=== PATIENT | female | born 1990 | race Hispanic/Latino ===

== ENCOUNTER 2016-10-16 12:12 | Emergency (ER) | payer OTHER ==
[~2016-10-16] VITALS: Ht 157.5 cm; Wt 67.6 kg
--- NOTE | 2016-10-16 13:18 | ED INFLUENZA/URI COMPLAINT ---
History of Present Illness General Chief Complaint: Upper Respiratory Sx/Fever Stated Complaint: URI Source: patient Exam Limitations: no limitations Vital Signs & Intake/Output Vital Signs & Intake/Output Vital Signs Date Time Temp Pulse Resp B/P Pulse O2 O2 Flow FiO2 Ox Delivery Rate 10/16 1523 99.2 87 18 114/72 98 Room Air 10/16 1349 101.2 10/16 1348 101.2 10/16 1315 Room Air 10/16 1312 102.5 ED Intake and Output 10/17 0000 10/16 1200 Intake Total 1000 Output Total Balance 1000 Intake, IV 1000 Patient 149 lb Weight Allergies Coded Allergies: NO KNOWN ALLERGIES (10/16/16) Reconcile Medications Ondansetron (Zofran Odt) 4 MG TAB.RAPDIS 1 TAB SL TID PRN nausea and vomiting Oseltamivir Phosphate (Tamiflu) 75 MG CAPSULE 1 CAP PO BID influenza a Triage Note: TRIAGE: PT TO ER C/C SNEEZING AND COUGHING X 2 DAYS, UNRELIEVED WITH OTC MEDICATIONS. COUGH IS PRODUCTIVE WITH GREEN PHLEGM REPORTED. HAS CHEST AND NASAL CONGESTION. HAS TEMP AT TRIAGE. LAST DOSE OF DAYQUIL AND MUCINEX 09:00. Triage Nurses Notes Reviewed? yes : No Patient currently breastfeeds: No HPI: This patient is a 26-year-old female who presented to the emergency department today for multiple complaints. She reported that approximately 2 days ago she started having a runny nose and a cough. She reported that the cough is intermittently productive of sputum. She reported that over the last 2 days her symptoms have progressed to include a 7 out of 10 bilateral lower back pain, abdominal cramping in the lower regions which she associates with her current menses, slight burning with urination and urinary frequency which she attributes to drinking a lot of water over the last couple of days, fevers for which she has been taking Motrin, last dose this morning, and pain in her ears. The patient is also reporting facial pressure and nausea with some vomiting. No blood in the vomitus. The patient has been eating and drinking normally. She denied any chills or chest pain. She did report some intermittent difficulty breathing associated with her cough. The patient denied any diarrhea or constipation. She reported that she has been taking Tamiflu, Mucinex, NyQuil, and DayQuil with no relief of her symptoms. Past History Travel History Traveled to [place] past 21 day No Medical History Any Pertinent Medical History? see below for history Neurological: NONE EENT: NONE Cardiovascular: NONE Respiratory: NONE Gastrointestinal: NONE Hepatic: NONE Renal: NONE Musculoskeletal: NONE Psychiatric: NONE Endocrine: NONE Blood Disorders: NONE Cancer(s): NONE WINDOW GLASS INSTALLER/Reproductive: NONE Surgical History Surgical History: non-contributory Psychosocial History What is your primary language [place] Tobacco Use: Never used ETOH Use: occasional use Illicit Drug Use: denies illicit drug use Family History Hx Contributory? No Review of Systems Review of Systems Constitutional: Reports: see HPI. EENTM: Reports: see HPI. Respiratory: Reports: see HPI. Cardiovascular: Reports: no symptoms. GI: Reports: see HPI. Genitourinary: Reports: see HPI. Musculoskeletal: Reports: see HPI. Skin: Reports: no symptoms. Neurological/Psychological: Reports: no symptoms. All Other Systems: Reviewed and Negative Physical Exam Physical Exam Ears, Nose, Throat: nasal drainage and cogestion, fluid build-up behind bilateral TM with no erythema or signs of perforation, bilateraly external auditory canals normal with no erythema, no pharyngeal injection, post-nasal drip noted Comments: Well-developed well-nourished person in no acute distress HEENT: Head normocephalic, moist mucous membranes, tenderness to palpation over the sinuses Pupils equally round and reactive to light. Neck: Supple, no lymphadenopathy Back: Normal gait. Normal inspection. Bilateral CVA tenderness Cardiovascular: Tachycardic with a regular rhythm and no murmurs, rubs or gallops Respiratory: No respiratory distress. Breath sounds clear to auscultation bilaterally with no wheezes, rales, or rhonchi Abdomen: Soft and nondistended. No organomegaly. Normal active bowel sounds. Mild tenderness to palpation in the suprapubic region with no rebound or guarding. No McBurney's point tenderness. Negative Rovsing sign. Negative Taveras sign Extremity: Normal and equal pulses. Neuro: Alert oriented x3, cranial nerves II through XII grossly intact. Skin: No appreciable rash on exposed skin, skin is warm and dry. Psych: Mood and affect is normal Core Measures Severe Sepsis Present: No Septic Shock Present: No Progress Differential Diagnosis: influenza, meningitis, neutropenia, otitis, pneumonia, pharyngitis, sinusitis, appendicitis, pyelonephritis, uti Plan of Care: Orders Procedure Date/time Status VIRAL CULTURE 10/16 1314 Active Laboratory Tests 10/16/16 1446: Urine Color YEL, Urine Clarity CLEAR, Urine pH 6.0, Ur Specific [place] <= 1.005 , Urine Protein NEG, Urine Ketones TRACE H, Urine Nitrite NEG, Urine Bilirubin NEG, Urine Urobilinogen 0.2, Ur Leukocyte Esterase TRACE H, Ur Microscopic SEDIMENT EXAMINED, Urine RBC 15-25 H, Urine WBC RARE, Ur Epithelial Cells MOD H, Urine Hemoglobin LARGE H, Urine Glucose NEG, Urine Test NEGATIVE 10/16/16 131: Virus Culture Pending 10/16/16 1311: Anion Gap 14, Estimated GFR > 60, BUN/Creatinine Ratio 13.3, Glucose 100 H, Calcium 8.4, Total Bilirubin 0.6, AST 59 H, ALT 83 H, Alkaline Phosphatase 65, Total Protein 7.2, Albumin 4.1, Globulin 3.1, Albumin/Globulin Ratio 1.3, CBC w Diff MAN DIFF ORDERED, RBC 4.47, MCV 68.3 L, MCH 21.9 L, RDW 17.4 H, MPV 7.7, Gran % 81.1 H, Lymphocytes % 11.6 L, Monocytes % 7.3, Eosinophils % 0, Basophils % 0 L, Absolute Granulocytes 8.6 H, Absolute Lymphocytes 1.2, Absolute Monocytes 0.8 H, Absolute Eosinophils 0, Absolute Basophils 0, Platelet Estimate VERIFIED BY SMEAR, Hypochromic-Microcytic 1+, Poikilocytosis 1 +, Anisocytosis 1+, Microcytic Cells 1+, Ovalocytes 1+, PUBS MCHC 32.0 L Initial ED EKG: none Departure Departure Disposition: HOME OR SELF CARE Condition: Stable Clinical Impression Primary Impression: Influenza A Referrals: PATIENT HAS NO PRIMARY CARE DR (PCP/Family) Additional Instructions: Take Tamiflu as prescribed. Take Zofran as prescribed for nausea. Continue to take [id number] Mucinex for nasal congestion. You may take Tylenol or Motrin for fevers. Rest and be sure to stay hydrated. Return to the emergency department for any worsening symptoms or concerns. Departure Forms: Customer Survey General Discharge Information Prescriptions: Current Visit Scripts Oseltamivir Phosphate (Tamiflu) 1 CAP PO BID #10 CAP Ondansetron (Zofran Odt) 1 TAB SL TID PRN nausea and vomiting #10 TAB
[2016-10-16 13:32] LABS: ABSOLUTE BASOPHIL COUNT 0 /CUMM (0.0-0.2); ABSOLUTE EOSINOPHIL COUNT 0 /CUMM (0.0-0.7); ABSOLUTE GRANULOCYTE CT 8.6 /CUMM (1.4-6.5); ABSOLUTE LYMPH COUNT 1.2 /CUMM (1.2-3.4); ABSOLUTE MONOCYTE COUNT 0.8 /CUMM (0.10-0.60); BASOPHIL % 0 % (0.0-2.0); EOSINOPHIL % 0 % (0-5); GRANULOCYTE % 81.1 % (42.2-75.2); HEMATOCRIT 30.5 % (37-47); MEAN CORPUSCULAR HGB 21.9 PG (27.0-31.0); MEAN CORPUSCULAR VOLUME 68.3 FL (81.0-99.0); MEAN PLATELET VOLUME 7.7 FL (7.4-10.4); PLATELET COUNT 210 /CUMM (130-400); RBC DISTRIBUTION WIDTH 17.4 % (11.5-14.5); RED BLOOD CELL CT 4.47 /CUMM (4.20-5.40); WHITE BLOOD CELL COUNT 10.6 /CUMM (4.8-10.8)
[2016-10-16] MEDS ORDERED: ZOFRAN ODT4 M1 SL (15:04)
[2016-10-16] MEDS ORDERED: TAMIFLU75 M1 PO (15:04)
[2016-10-16 15:23] VITALS: BP 114/72
== END 2016-10-16 15:24 ==
LOC: ERH 12:12
PROVIDERS: Physician Assistant
DX: J09.X2 Influenza due to identified novel influenza A virus with other respiratory manifestations (principal); M54.5 Low back pain; R30.0 Dysuria
CPT/HCPCS: 81001; 81025; 87804; 87804-59; 96374; J0131